=== PATIENT | female | born 1960 | race African-American/Black ===

== ENCOUNTER 2016-05-21 10:58 | Day surgery (SDC) | payer BC ==
--- NOTE | ~2016-05-21 | OP ---
Record Of Operation [facility] [address] [place]. [address] NAME: ARACELY GARCIA : 56 STATUS : [facility] UNIT#: [id number] AGE: 55 ADM/REG DATE : 05/21/16 MR#: [id number] REPORT SERV DATE: 05/21/16 DICTATED BY: SHAQ PAULSON DATE: 05/21/16 REPORT STATUS : Draft TRANSCRIBED BY: MODL DATE: 05/21/16 DATE OF PROCEDURE: 05/21/2016 PREOPERATIVE DIAGNOSIS: Status post left total knee. POSTOPERATIVE DIAGNOSIS: Status post left total knee. OPERATION: Left knee closed manipulation under anesthesia. SURGEON: Yuan Paulson M.D. DIE TURNER: See chart. PROCEDURE: The patient was taken to the recovery area with IV sedation per the anesthesiologist. General pressure was applied to the proximal tibia. Knee brought back into flexion. Anterior as the patient was flexed. The patient was wrapped with an Prosper wrap, awakened and discharged to home without incident. COMPLICATIONS: None. SPECIMENS: None. WTB/MARLENY Yuan Paulson M.D. / [id number] CC: Yuniel Thao Katrina V.
[~2016-05-21 10:58] MED LIST: C5; DIOV80 PO; ESTRADIOL2 MG PO; FESO4 PO; INSPRA50 MG PO; KDUR20 PO; L40 PO; MOBIC15 MG PO; MVI PO; NORCO1 TA1 PO; PRILO PO
[2016-05-21 11:46] LABS: HEMATOCRIT 39.2 % (36.0-48.0); HEMOGLOBIN 12.9 g/dL (12.0-16.0)
[2016-05-21 11:56] LABS: BUN (BLOOD UREA NITROGEN) 9 MG/DL (6-23); CALCIUM, SERUM 9.1 MG/DL (8.5-10.4); CHLORIDE, SERUM 108 MMOL/L (96-112); CO2 (CARBON DIOXIDE) 28 MMOL/L (24-34); CREATININE 0.64 MG/DL (0.55-1.02); GFR AFRICAN AMERICAN 115 ML/MIN (>=60); GFR NON AFRICAN AMERICAN 99 ML/MIN (>=60); GLUCOSE, SERUM 89 MG/DL (60-99); POTASSIUM, SERUM 4.3 MMOL/L (3.5-5.3); SODIUM, SERUM 142 MMOL/L (135-148)
== END 2016-05-21 15:12 | disposition home or self-care (01) ==
LOC: SDC 10:58
PROVIDERS: Specialist
PROC: 0SSD0ZZ Reposition Left Knee Joint, Open Approach (ICD-10-PCS; principal; 2016-05-21 12:15)
DX: M24.662 Ankylosis, left knee (principal); F17.200 Nicotine dependence, unspecified, uncomplicated; I10 Essential (primary) hypertension; G47.33 Obstructive sleep apnea (adult) (pediatric); K21.9 Gastro-esophageal reflux disease without esophagitis; M19.90 Unspecified osteoarthritis, unspecified site; Z88.2 Allergy status to sulfonamides; Z99.81 Dependence on supplemental oxygen; Z90.710 Acquired absence of both cervix and uterus
CPT/HCPCS: 80048; 85014; 85018; 93005; J2250; J2795; J3010